=== PATIENT | female | born 1990 ===

== ENCOUNTER 2017-02-03 03:31 | Emergency (ER) | payer BC ==
[2017-02-03] MEDS ORDERED: Sodium Chloride 0.9% 1,000 ML IV ONE (03:32)
[2017-02-03] MEDS ORDERED: Ondansetron 4 MG/2 ML SDV IVPUSH ONE (03:32)
[2017-02-03] MEDS ORDERED: Ketorolac 30 MG/ML SDV IVPUSH ONE (03:32)
--- NOTE | 2017-02-03 03:34 | EDM.PDOC ---
ED HPI GENERAL MEDICAL PROBLEM - General Chief Complaint: Abdominal Pain Stated Complaint: ABDOMINAL PAIN Time Seen by Provider: 02/03/17 03:33 Source of Information: Reports: Patient - History of Present Illness INITIAL COMMENTS - FREE TEXT/NARRATIVE: HISTORY AND PHYSICAL: History of present illness: []Patient said 5 out of 10 lower abdominal pain for 2 hours she Presents after 2 episodes of vomiting she is in no distress she is had previous appendectomy no fever chills sweats no chest pain shortness breath headache dizziness or palpitation denies bowel or urine symptoms she is not sure when her last bowel movement was she believes yesterday Review of systems: As per history of present illness and below otherwise all systems reviewed and negative. Past medical history: As per history of present illness and as reviewed below otherwise noncontributory. Surgical history: As per history of present illness and as reviewed below otherwise noncontributory. Social history: No reported history of drug or alcohol abuse. Family history: As per history of present illness and as reviewed below otherwise noncontributory. Physical exam: HEENT: Atraumatic, normocephalic, pupils reactive, negative for conjunctival pallor or scleral icterus, mucous membranes moist, throat clear, neck supple, nontender, trachea midline. Lungs: Clear to auscultation, breath sounds equal bilaterally, chest nontender. Heart: S1S2, regular, negative for clicks, rubs, or JVD. Abdomen: Soft, nondistended, nontender. Negative for masses or hepatosplenomegaly. Negative for costovertebral tenderness. Pelvis: Stable nontender. Genitourinary: Deferred. Rectal: Deferred. Extremities: Atraumatic, negative for cords or calf pain. Neurovascular unremarkable. Neuro: Awake, alert, oriented. Cranial nerves II through XII unremarkable. Cerebellum unremarkable. Motor and sensory unremarkable throughout. Exam nonfocal. Diagnostics: []Lab as below Abdomen flat and upright Therapeutics: []1 L normal saline bolus Toradol 30 mg IV Zofran 8 mg IV MiraLAX Gas-X Impression: []Abdominal pain Mild hypokalemia 3.2 Moderate amount of stool Nonobstructive gas pattern Definitive disposition and diagnosis as appropriate pending reevaluation and review of above. Lower Abdominal Pain Score (Numeric/FACES): 7 - Related Data Allergies Allergy/AdvReac Type Severity Reaction Status Date / Time No Known Allergies Allergy Verified 02/03/17 03:34 Home Meds: Home Meds . [No Known Home Meds] 02/03/17 [History] ED ROS GENERAL - Review of Systems Review Of Systems: ROS reveals no pertinent complaints other than HPI. ED EXAM, GENERAL - Physical Exam Exam: See Below Course - Vital Signs Last Recorded V/S: Last Vital Signs Temp 36.6 C 02/03/17 03:34 Pulse 63 02/03/17 04:45 Resp 16 02/03/17 04:45 BP 111/74 02/03/17 04:45 Pulse Ox 98 02/03/17 04:45 - Orders/Labs/Meds Orders: Active Orders 24 hr Category Date Time Status Abdomen 2V AP Flat Upright [CR] Stat Exams 02/03/17 04:08 Taken UA W/MICROSCOPIC [URIN] Stat Lab 02/03/17 05:05 Received Labs: Laboratory Tests 02/03/17 02/03/17 02/03/17 Range/Units 03:40 03:40 03:40 WBC 6.25 (4.0-11.0) K/uL RBC 4.68 (4.30-5.90) M/uL Hgb 11.5 L (12.0-16.0) g/dL Hct 34.5 L (36.0-46.0) % MCV 73.7 L (80.0-98.0) fL MCH 24.6 L (27.0-32.0) pg MCHC 33.3 (31.0-37.0) g/dL RDW Std Deviation 39.0 (28.0-62.0) fl RDW Coeff of Zachary 15 (11.0-15.0) % Plt Count 266 (150-400) K/uL MPV 10.30 (7.40-12.00) fL Neut % (Auto) 57.8 (48.0-80.0) % Lymph % (Auto) 31.2 (16.0-40.0) % [place] % (Auto) 8.6 (0.0-15.0) % Eos % (Auto) 1.6 (0.0-7.0) % Baso % (Auto) 0.8 (0.0-1.5) % Neut # (Auto) 3.6 (1.4-5.7) K/uL Lymph # (Auto) 2.0 (0.6-2.4) K/uL [place] # (Auto) 0.5 (0.0-0.8) K/uL Eos # (Auto) 0.1 (0.0-0.7) K/uL Baso # (Auto) 0.1 (0.0-0.1) K/uL Nucleated RBC % 0.0 /100WBC Nucleated RBCs # 0 K/uL Sodium 141 (136-146) mmol/L Potassium 3.2 L (3.5-5.1) mmol/L Chloride 107 (98-110) mmol/L Carbon Dioxide 26 (21-31) mmol/L BUN 15 (6.0-23.0) mg/dL Creatinine 0.7 (0.6-1.5) mg/dL Est Cr Clr Drug Dosing TNP Estimated GFR (MDRD) > 60.0 ml/min Glucose 97 (60-110) mg/dL Calcium 8.9 (8.8-10.8) mg/dL Total Bilirubin 1.0 (0.1-1.5) mg/dL AST 11 (5-40) IU/L ALT 7 L (8-54) IU/L Alkaline Phosphatase 48 (40-150) Total Protein 7.6 (6.0-8.0) g/dL Albumin 4.2 (3.5-5.0) g/dL Globulin 3.4 (2.0-3.5) g/dL Albumin/Globulin Ratio 1.2 L (1.3-2.8) Amylase 50 (10-90) U/L Lipase 21 (7-80) U/L HCG, Quant < 1.2 mIU/mL Meds: Medications Discontinued Medications Generic Name Dose Route Start Last Admin Trade Name Freq PRN Reason Stop Dose Admin Sodium Chloride 1,000 mls @ 999 mls/hr 02/03/17 03:32 02/03/17 03:52 Normal Saline IV 02/03/17 04:32 999 mls/hr STAT ONE Administration Ketorolac Tromethamine 30 mg 02/03/17 03:32 02/03/17 03:51 Toradol IVPUSH 02/03/17 03:33 30 mg ONETIME ONE Administration Ondansetron HCl 8 mg 02/03/17 03:32 02/03/17 03:50 Zofran IVPUSH 02/03/17 03:33 8 mg ONETIME ONE Administration Potassium Chloride 20 meq 02/03/17 04:29 02/03/17 04:40 Klor-Con M20 PO 02/03/17 04:30 20 meq ONETIME ONE Administration Departure - Departure Time of Disposition: 05:24 Disposition: Home, Self-Care 01 Condition: Good Clinical Impression: Abdominal pain - Discharge Information Forms: ED Department Discharge Additional Instructions: MiraLAX 17 g by mouth daily as needed for bowel movement Gas-X Both products are available [id number] most grocery stores pharmacies and [facility] Return if symptoms persist or worsen or fever nausea vomiting chills sweats should this develop Follow-up with primary care in 2 weeks sooner as needed [facility] - Primary Care [address] [place] [id number] The following information is given to patients seen in the emergency department who are being discharged to home. This information is to outline your options for follow-up care. We provide all patients seen in our emergency department with a follow-up referral. The need for follow-up, as well as the timing and circumstances, are variable depending upon the specifics of your emergency department visit. If you don't have a primary care physician on staff, we will provide you with a referral. We always advise you to contact your personal physician following an emergency department visit to inform them of the circumstance of the visit and for follow-up with them and/or the need for any referrals to a consulting specialist. The emergency department will also refer you to a specialist when appropriate. This referral assures that you have the opportunity for follow-up care with a specialist. All of these measure are taken in an effort to provide you with optimal care, which includes your follow-up. Under all circumstances we always encourage you to contact your private physician who remains a resource for coordinating your care. When calling for follow-up care, please make the office aware that this follow-up is from your recent emergency room visit. If for any reason you are refused follow-up, please contact the [facility] emergency department at and asked to speak to the emergency department charge nurse. - My Orders Last 24 Hours: My Active Orders 02/03/17 04:08 Abdomen 2V AP Flat Upright [CR] Stat 02/03/17 05:05 UA W/MICROSCOPIC [URIN] Stat - Assessment/Plan Last 24 Hours: My Active Orders 02/03/17 04:08 Abdomen 2V AP Flat Upright [CR] Stat 02/03/17 05:05 UA W/MICROSCOPIC [URIN] Stat
[2017-02-03 04:15] LABS: CHLORIDE,CL 107 mmol/L (98-110); SODIUM,NA 141 mmol/L (136-146)
[2017-02-03] MEDS ORDERED: Potassium Chloride 20 MEQ Tab.ER PO ONE (04:29)
[2017-02-03 05:42] VITALS: BP 111/62
--- NOTE | 2017-02-03 15:27 | CR ---
EXAM DATE: 02/03/17 PATIENT'S AGE: 26 Patient: LYN MEYERSESSI Facility: [place], [place] Site . Site : 1990 Study: XRay Abdomen/Pelvis [id number]/24/2017 4:43:40 AM Ordering Physician: Zehra Pulido Final Report: INDICATION: LLQ pain TECHNIQUE: Abdomen 3 view COMPARISON: None FINDINGS: Bowel: Nonobstructive bowel gas pattern. Moderate amount of stool. Soft tissues: No sign of soft tissue mass. No suspicious calcifications. Bones: Unremarkable for age. IMPRESSION: Nonobstructive bowel gas pattern. Moderate amount of stool. Dictated by Jake Jorgensen MD @ 02/03/2017 5:14:02 AM Dictated by: Jake Jorgensen MD @ 02/03/2017 05:15:54 (Electronic Signature) Report Signed by Proxy. JOSE
== END 2017-02-03 05:40 | disposition home or self-care (01) ==
LOC: MW.ED 03:31
DX: R10.30 Lower abdominal pain, unspecified (principal); R31.9 Hematuria, unspecified; E87.6 Hypokalemia; Z90.49 Acquired absence of other specified parts of digestive tract
CPT/HCPCS: 74020; 80053; 81001; 82150; 83690; 84702; 85025; 96361; 96374; 96375; 99284; A9270; J1885; J2405; J7040

== ENCOUNTER 2019-01-13 12:00 | Emergency (ER) | payer BC, OTHER ==
[2019-01-13] MEDS ORDERED: Diphtheria,Pertussis(Acell),Tetanus Vaccine 0.5 ML Syringe IM ONE (12:18)
[2019-01-13] MEDS ORDERED: Silver Sulfadiazine 1% Crm 50 GM Tube TOP ONE (12:18)
[2019-01-13] MEDS ORDERED: Ibuprofen 800 MG Tab PO ONE (12:20)
--- NOTE | 2019-01-13 12:20 | EDM.PDOC ---
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 She says that this is the only injury and she leaned into the oven door which caused the burn. She did not take anything for the pain and was in her usual state of good health prior to these events. Review of systems: As per history of present illness and below otherwise all systems reviewed and negative. Past medical history: As per history of present illness and as reviewed below otherwise noncontributory. Surgical history: As per history of present illness and as reviewed below otherwise noncontributory. Social history: No reported history of drug or alcohol abuse. Family history: As per history of present illness and as reviewed below otherwise noncontributory. Physical exam: General: Well-developed well-nourished female who is nontoxic and vital signs are noted by me HEENT: Atraumatic, normocephalic, negative for conjunctival pallor or scleral icterus, mucous membranes moist, throat clear, neck supple, nontender, trachea midline. Lungs: Clear to auscultation, breath sounds equal bilaterally, chest nontender. Heart: S1S2, regular rate and rhythm no overt murmurs Abdomen: Soft, nondistended, nontender. NABS Pelvis: Deferred Genitourinary: Deferred. Rectal: Deferred. Extremities: Atraumatic, full range of motion of all extremities including the left upper extremity. At the dorsal aspect of the left upper extremity near the elbow flexure there is an oval area measuring approximately 15 cm x 6 cm of a superficial partial-thickness burn and some mild erythema extending several centimeters beyond that. It does not involve the elbow flexure nor the bony surface of the olecranon. There is tenderness in this area and there is no discrete blistering seen yet. There is tenderness with palpation but the patient can range of motion at the elbow and flex and extend at the wrist and hand distally. The burn is not circumferential and there are no other burn areas on the right upper extremity.. Neurovascular unremarkable. Neuro: Awake, alert, oriented. Cranial nerves II through XII unremarkable. Cerebellum unremarkable. Motor and sensory unremarkable throughout. Exam nonfocal. Diagnostics: none Therapeutics: Tdap, cool saline gauze, Silvadene to burn area and gauze dressing, ibuprofen Patient was offered something stronger for pain but she says she would like to return to work and drive herself there. Impression: Superficial partial-thickness burn to right upper extremity Definitive disposition and diagnosis as appropriate pending reevaluation and review of above. right arm Pain Score (Numeric/FACES): 5 - Related Data Allergies Allergy/AdvReac Type Severity Reaction Status Date / Time No Known Allergies Allergy Verified 02/03/17 03:34 Home Meds: Home Meds . 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 Musculoskeletal History: Reports: None Neurological History: Reports: None Psychiatric History: Reports: None Endocrine/Metabolic History: Reports: None Hematologic History: Reports: None Immunologic History: Reports: None Oncologic (Cancer) History: Reports: None Dermatologic History: Reports: None - Infectious Disease History Infectious Disease History: Reports: None - Past Surgical History Head Surgeries/Procedures: Reports: None HEENT Surgical History: Reports: None Cardiovascular Surgical History: Reports: None Respiratory Surgical History: Reports: None GI Surgical History: Reports: Appendectomy Female Surgical History: Reports: None Endocrine Surgical History: Reports: None Neurological Surgical History: Reports: None Musculoskeletal Surgical History: Reports: None Oncologic Surgical History: Reports: None Dermatological Surgical History: Reports: None Social & Family History - Family History Family Medical History: Noncontributory - Tobacco Use Smoking Status *Q: Never Smoker Second Hand Smoke Exposure: No - Caffeine Use Caffeine Use: Reports: Coffee, Tea - Recreational Drug Use Recreational Drug Use: No ED ROS GENERAL - Review of Systems Review Of Systems: ROS reveals no pertinent complaints other than HPI. ED EXAM, GENERAL - Physical Exam Exam: See Below (See dictation) Course - Vital Signs Last Recorded V/S: Last Vital Signs Temp 35.3 C 01/13/19 12:13 Pulse 87 01/13/19 12:13 Resp 18 01/13/19 12:13 BP 128/77 01/13/19 12:13 Pulse Ox 100 01/13/19 12:13 - Orders/Labs/Meds Orders: Active Orders 24 hr Category Date Time Status Communication Order [RC] STAT Care 01/13/19 12:18 Ordered Vaccines to be Administered [RC] PER UNIT ROUTINE Care 01/13/19 12:18 Ordered Ibuprofen [Motrin] Med 01/13/19 12:20 Once 800 mg PO ONETIME ONE Meds: Medications Discontinued Medications Generic Name Dose Route Start Last Admin Trade Name Kristi PRN Reason Stop Dose Admin Diphtheria/Tetanus/Acell Pertussis 0.5 ml 01/13/19 12:18 Adacel IM 01/13/19 12:19 .ONCE ONE Silver Sulfadiazine 3 gm 01/13/19 12:18 Silvadene 1% Cream 50 Gm TOP 01/13/19 12:19 ONETIME ONE Departure - Departure Time of Disposition: 12:26 Disposition: Home, Self-Care 01 Condition: Good Clinical Impression: Burn of right upper extremity Qualifiers: Encounter type: initial encounter Upper extremity location: upper arm Burn degree: partial thickness (2nd degree) Qualified Code(s): T22.231A - Burn of second degree of right upper arm, initial encounter - Discharge Information Forms: ED Department Discharge Additional Instructions: The following information is given to patients seen in the emergency department who are being discharged to home. This information is to outline your options for follow-up care. We provide all patients seen in our emergency department with a follow-up referral. The need for follow-up, as well as the timing and circumstances, are variable depending upon the specifics of your emergency department visit. If you don't have a primary care physician on staff, we will provide you with a referral. We always advise you to contact your personal physician following an emergency department visit to inform them of the circumstance of the visit and for follow-up with them and/or the need for any referrals to a consulting specialist. The emergency department will also refer you to a specialist when appropriate. This referral assures that you have the opportunity for followup care with a specialist. All of these measure are taken in an effort to provide you with optimal care, which includes your followup. Under all circumstances we always encourage you to contact your private physician who remains a resource for coordinating your care. When calling for followup care, please make the office aware that this follow-up is from your recent emergency room visit. If for any reason you are refused follow-up, please contact the [facility] emergency department at and ask to speak to the emergency department charge nurse. Primary care- Internal Medicine and Family [address] [address] Cleanse the area with mild soap and water and pat dry and apply a very thin layer of the Silvadene at least twice a day. Elevate the arm and use ice to the surround for any swelling and pain. Use [id number] ibuprofen and Tylenol for pain management. Call and schedule a follow-up appointment with your provider in the clinic or one of ours for further care and evaluation of this. Return to ER as needed and as discussed - My Orders Last 24 Hours: My Active Orders 01/13/19 12:18 Communication Order [RC] STAT Vaccines to be Administered [RC] PER UNIT ROUTINE 01/13/19 12:20 Ibuprofen [Motrin] 800 mg PO ONETIME ONE - Assessment/Plan Last 24 Hours: My Active Orders 01/13/19 12:18 Communication Order [RC] STAT Vaccines to be Administered [RC] PER UNIT ROUTINE 01/13/19 12:20 Ibuprofen [Motrin] 800 mg PO ONETIME ONE
[2019-01-13 12:59] VITALS: BP 119/76
== END 2019-01-13 13:00 | disposition home or self-care (01) ==
LOC: MW.ED 12:00
DX: T22.231A Burn of second degree of right upper arm, initial encounter (principal); W86.1XXA Exposure to industrial wiring, appliances and electrical machinery, initial encounter; Z23 Encounter for immunization; Y99.0 Civilian activity done for income or pay
CPT/HCPCS: 16020; 90471; 90715; 99283; A9270